=== PATIENT | female | born 1980 | race Caucasian/White ===

== ENCOUNTER 2017-01-20 06:47 | Inpatient (IN) | payer OTHER ==
[2017-01-20] VITALS (8 sets, daily range): BP systolic 105–125; BP diastolic 57–76
[~2017-01-20] VITALS: Ht 162.6 cm; Wt 64.6 kg
[~2017-01-20 06:47] MED LIST: BENTYL10 MG PO; CALCIUM 500 +1 EAC4 PO; DEXILANT60 MG PO; GAS RELIEF125 M1 PO; PRENATAL + DHA1 EAC1 PO; TUMS500 MG PO
[2017-01-20 08:49] LABS: EOSINOPHIL (%) 0.6 % (0-5); EOSINOPHIL COUNT 0.1 K/uL (0-0.3); HEMATOCRIT 38.1 % (36.0-46.0); IMMATURE GRANULOCYTE COUNT 0.1 K/uL; INSTRUMENT ABS NEUTROPHIL CT 5.7 K/uL; LYMPHOCYTE COUNT 1.3 K/uL (1.0-2.8); MCH 30.1 PG (29.0-34.0); MCHC 32.3 G/DL (30.0-36.0); MCV 93.2 FL (83-99); MEAN PLAT.VOLUME 10.4 uM^3 (9.5-12.4); MONOCYTE (%) 8.6 % (3-12); MONOCYTE COUNT 0.7 K/uL (0-0.8); NEUTROPHIL (%) 73.1 % (45-76); NEUTROPHIL COUNT 5.7 K/uL (1.8-6.4); PLATELET COUNT 200 K/uL (156-360); RBC DIS.WIDTH-SD 47.8 % (39-53); RED BLOOD COUNT 4.09 M/uL (3.80-5.20); WHITE BLOOD COUNT 7.8 K/uL (4.1-10.2)
[2017-01-21 03:32] VITALS: BP 98/58
[2017-01-21 07:27] LABS: EOSINOPHIL (%) 0.6 % (0-5); EOSINOPHIL COUNT 0.1 K/uL (0-0.3); HEMATOCRIT 29.9 % (36.0-46.0); IMMATURE GRANULOCYTE (%) 0.6 % (0.0-0.7); IMMATURE GRANULOCYTE COUNT 0.1 K/uL; INSTRUMENT ABS NEUTROPHIL CT 8.5 K/uL; LYMPHOCYTE COUNT 1.9 K/uL (1.0-2.8); MCH 30.5 PG (29.0-34.0); MCHC 32.8 G/DL (30.0-36.0); MCV 93.1 FL (83-99); MEAN PLAT.VOLUME 10.9 uM^3 (9.5-12.4); MONOCYTE (%) 10.1 % (3-12); MONOCYTE COUNT 1.2 K/uL (0-0.8); NEUTROPHIL (%) 72.1 % (45-76); NEUTROPHIL COUNT 8.5 K/uL (1.8-6.4); PLATELET COUNT 173 K/uL (156-360); RBC DIS.WIDTH-CV 13.8 % (11.8-14.6); RBC DIS.WIDTH-SD 47.2 % (39-53); WHITE BLOOD COUNT 11.8 K/uL (4.1-10.2)
[2017-01-21 07:30] LABS: RED BLOOD COUNT 3.21 M/uL (3.80-5.20)
[2017-01-21 07:53] VITALS: BP 107/66
[2017-01-21 11:00] VITALS: BP 115/68
[2017-01-21 15:16] VITALS: BP 118/71
[2017-01-21 19:35] VITALS: BP 112/79
[2017-01-21 22:07] VITALS: BP 110/71
[2017-01-22 07:20] VITALS: BP 112/69
[2017-01-22] MEDS ORDERED: IBUPROFEN800 MG PO (08:55)
[2017-01-22] MEDS ORDERED: ENDOCET 5-3251 EACH PO (08:55)
[2017-01-22] MEDS ORDERED: DOCUSATE SODIU100 MG PO (08:55)
== END 2017-01-22 14:26 | disposition home or self-care (01) | DRG 766 ==
LOC: 2WEST 06:47 → 2SOUTH 09:30 → 2WEST 01-22 14:26
PROVIDERS: Obstetrics & Gynecology
DX: O34.211 Maternal care for low transverse scar from previous cesarean delivery (principal); O99.344 Other mental disorders complicating childbirth; F41.0 Panic disorder [episodic paroxysmal anxiety]; Z37.0 Single live birth; Z3A.40 40 weeks gestation of pregnancy; Z30.2 Encounter for sterilization
CPT/HCPCS: 85025; 86900; 86901; 88302; J0690; J1885; J2274; J2765; J7120